=== PATIENT | male | born 1985 | race Caucasian/White ===

== ENCOUNTER 2017-09-25 04:15 | Emergency (ER) | payer OTHER ==
[~2017-09-25] VITALS: Ht 177.8 cm; Wt 68.0 kg
[2017-09-25 04:21] VITALS: BP 130/79; PULSE 88; RESP 16; TEMP 98.7; O2SAT 100
[2017-09-25 04:25] VITALS: BP 130/79; PULSE 88; RESP 20; TEMP 98; O2SAT 98
--- NOTE | 2017-09-25 05:03 | PD ---
HPI Chief Complaint: Medical Clearance Time Seen by Provider: 04:51 Travel History International Travel<30 days: No Contact w/Intl Traveler<30days: No Traveled to known affect area: No History of Present Illness HPI 32-year-old white male presents emergency department for medical clearance to go to snf. The patient was placed under arrest at [facility]. During the patient's arrest the patient sustained an injury to his right parietal scalp, and right foot. Bystanders feel the patient had a momentary loss of consciousness. The patient here is intoxicated. He initially is refusing any evaluation. He states that he does not feel he was unconscious at any time. He does complain of a scalp laceration as well as an injury to his right foot. Patient denies any shortness of breath. No chest pain. No abdominal pain. No neck or back pain. No numbness or tingling. No nausea vomiting. PFSH Past Medical History Medical History: Denies Significant Hx Diminished Hearing: No Tetanus Vaccination: < 5 Years Past Surgical History Surgical History: No Previous Surgery Social History Alcohol Use: Yes Tobacco Use: Yes Substance Use: Yes Allergies-Medications (Allergen,Severity, Reaction): Coded Allergies: No Known Allergies (Unverified , 09/25/17) Reported Meds & Prescriptions Reported Meds & Active Scripts Active No Active Prescriptions or Reported Medications Review of Systems ROS Limitations: Intoxication General / Constitutional: No: Fever Eyes: No: Visual changes HENT: No: Headaches, Neck Stiffness, Neck Pain Cardiovascular: No: Chest Pain or Discomfort Respiratory: No: Shortness of Breath Gastrointestinal: No: Abdominal Pain Genitourinary: No: Dysuria Musculoskeletal: Positive: Pain (Right great toe pain) Skin: Positive Rash (Scalp laceration) Neurologic: Positive: Headache, No: Weakness, Paresthesia Psychiatric: No: Depression Endocrine: No: Polydipsia Hematologic/Lymphatic: No: Easy Bruising Physical Exam Narrative GENERAL: Well-developed, well-nourished in no apparent distress. Nontoxic appearing. HEAD: Patient has a soft tissue contusion to the right parietal scalp with a 2 cm laceration. Mild soft tissue swelling. No bony step-off. Patient also has some tenderness, ecchymosis and mild swelling of the right pinna. No cauliflower ear.. EYES: Pupils equal round and reactive. Extraocular motions intact. No scleral icterus. No injection or drainage. ENT: Nose clear. Throat without erythema, Tonsillar hypertrophy or exudate. Uvula midline. Airway patent. no hemotympanum. NECK: Trachea midline. Supple, nontender, moves head freely. No central bony tenderness or spasm. CARDIOVASCULAR: Regular rate and rhythm without murmurs, gallops, or rub s. RESPIRATORY: Clear to auscultation. Breath sounds equal bilaterally. No wheezes , rales, or rhonchi. GASTROINTESTINAL: Abdomen soft, non-tender, nondistended. No hepato-splenomegaly , or palpable masses. No guarding. EXTREMITIES: No clubbing, cyanosis, examination of the right foot reveals tenderness to the great toe and there is an area of ecchymosis to the lateral proximal aspect of the toe. No pain in the second through fifth toe. No pain in the forefoot, ankle, knee or hip. He has intact sensation and good distal pulses. The left lower extremity as well as the upper extremities are without localizing bony tenderness or deformity. BACK: Nontender without deformity. No flank tenderness. NEUROLOGICAL: Awake, alert and oriented x 3 .Cranial nerves grossly intact. Motor and sensory grossly within normal limits. Slurred speech. Data Data Last Documented VS Vital Signs Date Time Temp Pulse Resp B/P (MAP) Pulse Ox O2 Delivery O2 Flow Rate FiO2 09/25/17 04:25 98.0 88 20 130/79 (96) 98 Room Air Orders Orders Ct Brain W/O Iv Contrast(Rout) (09/25/17 04:51) Foot, Complete ([id number]) (09/25/17 04:51) MDM Medical Decision Making Medical Screen Exam Complete: Yes Emergency Medical Condition: Yes Medical Record Reviewed: Yes Differential Diagnosis MDM: High Differential diagnoses: Fracture, sprain, strain, dislocation, contusion, neurovascular injury, head injury Narrative Course Patient was initially refusing evaluation. I explained to him at length that he would need to be monitored here in the ER for several hours due to his intoxication to rule out any significant head injury or bodily injury.. The patient is now consented to evaluation including x-rays and sutures. The patient laceration has been repaired. Once again the patient has refused x- rays. He will be monitored here in the ER for the next several hours to ensure no evidence of head injury and we will allow the patient sober up Procedures Procedure Narrative LACERATION LOCATION: Right parietal scalp LENGTH: 2 cm NUMBER OF STITCHES/BLANCA: 4 REPAIR: The area of the laceration was prepped with Betadine and sterilely draped. The laceration was infiltrated with 1% lidocaine with epinephrine . The wound was copiously irrigated and explored without evidence of foreign body , tendon injury or neurovascular injury. The wound was closed using blanca. This was a simple single layer repair. A sterile dressing was applied. The patient was advised to keep the dressing clean and dry. Patient tolerated the procedure well. Diagnosis Primary Impression: Head injury Additional Impressions: Scalp laceration Right great toe contusion Patient Instructions: General Instructions Additional Instructions: Rest. Elevation. Head precautions. Tylenol and Advil for pain. Daily wound care with soap, water, Neosporin. Sutures out in 9 days. Return to the ER if any problems. Med/Other Pt SpecificInfo: Wound Care Scripts No Active Prescriptions or Reported Meds Disposition: [address] LAW ENFORCEMNT Condition: Stable Oscar Denny Sep 25, 2017 05:03
--- NOTE | 2017-09-25 07:54 | RADRPT ---
EXAM DATE/TIME: 09/25/2017 07:35 [facility] COMPARISON: No previous studies available for comparison. INDICATIONS : Right parietal injury, possible loss of consciousness RADIATION DOSE: 44.38 CTDIvol (mGy) MEDICAL HISTORY : None SURGICAL HISTORY : None. ENCOUNTER: Initial ACUITY: 1 day PAIN SCALE: 0/10 LOCATION: cranial TECHNIQUE: Multiple contiguous axial images were obtained of the head. Using automated exposure control and adj ustment of the mA and/or kV according to patient size, radiation dose was kept as low as reasonably a chievable to obtain optimal diagnostic quality images. DICOM format image data is available electro nically for review and comparison. FINDINGS: CEREBRUM: The ventricles are normal for age. No evidence of midline shift, mass lesion, hemorrhage or acute in farction. No extra-axial fluid collections are seen. POSTERIOR FOSSA: The cerebellum and brainstem are intact. The 4th ventricle is midline. The cerebellopontine angle i s unremarkable. EXTRACRANIAL: The visualized portion of the orbits is intact. Soft tissue swelling overlying the right temporal bon e. SKULL: The calvaria is intact. No evidence of skull fracture. CONCLUSION: 1. Soft tissue swelling overlying the right yazidi. 2. No acute intracranial abnormality. Mike Knight Jr., MD on September 25, 2017 at 7:51 Board Certified Radiologist. This report was verified electronically.
--- NOTE | 2017-09-25 08:00 | PD ---
Physical Exam Date Seen by Provider: Sep 25, 2017 Time Seen by Provider: 07:59 Narrative 32-year-old male previously seen by Oscar Juan was awaiting CT results for clearance for incarceration. CT of the head shows no acute process per radiologist. Patient is medically stable for discharge to police custody. Data Data Last Documented VS Vital Signs Date Time Temp Pulse Resp B/P (MAP) Pulse Ox O2 Delivery O2 Flow Rate FiO2 09/25/17 04:25 98.0 88 20 130/79 (96) 98 Room Air Orders Orders Ct Brain W/O Iv Contrast(Rout) (09/25/17 04:51) [facility] Medical Record Reviewed: Yes Supervised Visit with ANGELINA: Yes Narrative Course 32-year-old male previously seen by Oscar Juan was awaiting CT results for clearance for incarceration. CT of the head shows no acute process per radiologist. Patient is medically stable for discharge to police custody. Diagnosis Primary Impression: Head injury Additional Impressions: Right great toe contusion Scalp laceration Patient Instructions: General Instructions Departure Forms: Tests/Procedures Additional Instruction: Rest. Elevation. Head precautions. Tylenol and Advil for pain. Daily wound care with soap, water, Neosporin. Sutures out in 9 days. Return to the ER if any problems. Scripts No Active Prescriptions or Reported Meds Disposition: [address] LAW ENFORCEMNT Condition: Stable Cruz Zepeda Sep 25, 2017 08:00
== END 2017-09-25 08:27 ==
LOC: NEPD 04:15
DX: S01.01XA Laceration without foreign body of scalp, initial encounter (principal); S90.111A Contusion of right great toe without damage to nail, initial encounter; Y35.93XA Legal intervention, means unspecified, suspect injured, initial encounter; Z72.0 Tobacco use
CPT/HCPCS: 12001; 70450